=== PATIENT | female | born 1995 | race Caucasian/White ===

== ENCOUNTER 2018-11-30 10:19 | Observation (INO) | payer OTHER ==
[~2018-11-30] VITALS: Ht 149.9 cm; Wt 97.1 kg
[2018-11-30 11:01] VITALS: BP 125/66
== END 2018-11-30 18:00 | disposition home or self-care (01) ==
LOC: MLD 10:19
PROVIDERS: ADMIT Obstetrics & Gynecology; ATTEND Obstetrics & Gynecology
DX: O26.893 Other specified pregnancy related conditions, third trimester (principal); R10.9 Unspecified abdominal pain; Z3A.39 39 weeks gestation of pregnancy
CPT/HCPCS: 76815; 81000; G0378; Q0092

== ENCOUNTER 2018-12-05 14:05 | Inpatient (IN) | payer OTHER ==
[~2018-12-05] VITALS: Ht 149.9 cm; Wt 97.5 kg
[2018-12-05] MEDS ORDERED: METHYLERGONOVINE 0.2 MG/ML AMP IM PRN (14:35)
[2018-12-05] MEDS ORDERED: NALBUPHINE 10 MG/ML AMP IVP PRN (14:35)
[2018-12-05] MEDS ORDERED: LACTATED RINGERS 1,000 ML IV SCH (14:35)
[2018-12-05] MEDS ORDERED: CARBOPROST 250 MCG/ML AMP IM PRN (14:35)
[2018-12-05] MEDS ORDERED: OXYTOCIN 10 UNITS/ML VIAL IM SCH (14:35)
[2018-12-05] MEDS ORDERED: PROMETHAZINE 25 MG/ML VIAL IVP PRN (14:35)
[2018-12-05] MEDS ORDERED: PNV11TAB3 PO (14:54)
[2018-12-05] MEDS ORDERED: AMPICILLIN 2,000 MG in NACL 0.9% 100 ML IV SCH (15:39)
[2018-12-05 15:57] LABS: BASOPHILS % (AUTO) 0.2 % (0.0-2.0); EOSINOPHILS # (AUTO) 0.1 K/uL (0-0.4); EOSINOPHILS % (AUTO) 0.7 % (0.0-4.0); HEMATOCRIT 37.5 % (36-48); HEMOGLOBIN 12.9 g/dL (12.0-16.0); LYMPHOCYTES # (AUTO) 1.7 K/uL (2.5-16.5); LYMPHOCYTES % (AUTO) 12.4 % (20.5-51.1); MEAN CORPUSCULAR HEMOGLOBIN 32 pg (27-31); MEAN CORPUSCULAR HGB CONC 34 g/dL (33-37); MEAN CORPUSCULAR VOLUME 92.7 fL (80-94); MONOCYTES # (AUTO) 0.8 K/uL (0.8-1.0); MONOCYTES % (AUTO) 5.9 % (1.7-9.3); NEUTROPHILS # (AUTO) 10.8 K/uL (1.8-7.7); NEUTROPHILS % (AUTO) 80.8 % (42.2-75.2); PLATELET COUNT (AUTO) 224 K/uL (140-450); RED BLOOD CELL COUNT(AUTO) 4.05 MIL/uL (4.20-5.40); WHITE BLOOD COUNT (AUTO) 13.3 K/uL (4.8-10.8)
[2018-12-05 15:57] LABS: APPEARANCE,URINE HAZY (CLEAR); BILIRUBIN,URINE 1+ (NEGATIVE); BLOOD, URINE NEGATIVE (NEGATIVE); COLOR,URINE AMBER (YELLOW); LEUKOCYTE ESTERASE ,URINE TRACE (NEGATIVE); NITRITE, URINE NEGATIVE (NEGATIVE); PH,URINE 6.5 (5.0-9.0); UGLUCOSE TRACE (NEGATIVE)
[2018-12-05 16:05] LABS: RBC,URINE 0 /HPF (0-5); WBC,URINE 0-5 /HPF (0-5)
[2018-12-05] MEDS ORDERED: AMPICILLIN 2,000 MG VIAL ONE (16:20)
[2018-12-05] MEDS ORDERED: MISOPROSTOL 25 MCG TAB VG ONE (19:10)
[2018-12-05 19:45] VITALS: BP 126/58
[2018-12-05] MEDS ORDERED: MISOPROSTOL 25 MCG TAB ONE (19:56)
[2018-12-05] MEDS: AMPICILLIN 1,000 MG in NACL 0.9% 50 ML IV SCH (20:46)
[2018-12-05] MEDS ORDERED: AMPICILLIN 1,000 MG VIAL ONE (20:51)
[2018-12-06] MEDS ORDERED: AMPICILLIN 1,000 MG VIAL ONE ×6 (00:33→23:46)
[2018-12-06] MEDS ORDERED: SODIUM PHOSPHATE 118 ML ENEM RC PRN (03:00)
[2018-12-06] MEDS ORDERED: BLOOD GLUCOSE MONITORING 1 DEV DEV FS SCH (03:00)
[2018-12-06] MEDS ORDERED: OXYTOCIN 20 UNITS/LR PREMIX 1,000 ML IV ONE (03:52)
[2018-12-06] MEDS ORDERED: OXYTOCIN 20 UNITS in LACTATED RINGERS 1,000 ML IV SCH (04:00)
[2018-12-06] MEDS: AMPICILLIN 1,000 MG in NACL 0.9% 50 ML IV SCH ×4 (04:30→23:48)
[2018-12-06] MEDS ORDERED: metFORMIN 850 MG TAB PO SCH (08:20)
--- NOTE | 2018-12-06 14:25 | NUR ---
PATIENT HAS BEEN SCREENED AND CATEGORIZED LOW NUTRITION RISK. PATIENT WILL BE SEEN WITHIN 7 DAYS OF ADMISSION. 12/12/18 SAIMA BURT MBA, RD
[2018-12-06] MEDS ORDERED: MISOPROSTOL 25 MCG TAB ONE (18:12)
[2018-12-06] MEDS: metFORMIN 850 MG TAB PO SCH (19:33)
[2018-12-06] MEDS ORDERED: METF850T PO (20:12)
[2018-12-07] MEDS: AMPICILLIN 1,000 MG in NACL 0.9% 50 ML IV SCH ×3 (03:57→11:58)
[2018-12-07] MEDS ORDERED: AMPICILLIN 1,000 MG VIAL ONE ×3 (04:05→11:58)
[2018-12-07] MEDS: metFORMIN 850 MG TAB PO SCH (07:56)
== END 2018-12-07 14:55 | disposition home or self-care (01) | DRG 566 ==
LOC: MLD 14:05
PROVIDERS: ADMIT Obstetrics & Gynecology; ATTEND Obstetrics & Gynecology
PROC: 3E0P7VZ Introduction of Hormone into Female Reproductive, Via Natural or Artificial Opening (ICD-10-PCS; principal; 2018-12-05)
PROC: 3E033VJ Introduction of Other Hormone into Peripheral Vein, Percutaneous Approach (ICD-10-PCS; 2018-12-06)
DX: O24.419 Gestational diabetes mellitus in pregnancy, unspecified control (principal); E66.01 Morbid (severe) obesity due to excess calories; O61.0 Failed medical induction of labor; O99.213 Obesity complicating pregnancy, third trimester; Z3A.00 Weeks of gestation of pregnancy not specified
CPT/HCPCS: 36415; 59200; 76815; 81001; 82948; 85025; 86592; 86886; 86900; 86901; J0290; J2590; J7120; Q0092

== ENCOUNTER 2018-12-09 17:34 | Observation (INO) | payer OTHER ==
[~2018-12-09] VITALS: Ht 154.9 cm; Wt 70.8 kg
[~2018-12-09 17:34] MED LIST: METF850T PO; PNV11TAB3 PO
== END 2018-12-09 20:21 | disposition home or self-care (01) ==
LOC: MLD 17:34
PROVIDERS: ADMIT Obstetrics & Gynecology; ATTEND Obstetrics & Gynecology
DX: O24.119 Pre-existing type 2 diabetes mellitus, in pregnancy, unspecified trimester (principal); Z3A.38 38 weeks gestation of pregnancy
CPT/HCPCS: 59025; 81000; G0378

== ENCOUNTER 2018-12-11 18:17 | Inpatient (IN) | payer OTHER ==
[~2018-12-11] VITALS: Ht 149.9 cm; Wt 96.6 kg
[2018-12-11] MEDS ORDERED: MISOPROSTOL 25 MCG TAB ONE (19:13)
[2018-12-11] MEDS ORDERED: NACL 0.9% 1,000 ML IV SCH (19:22)
[2018-12-11] MEDS ORDERED: AMPICILLIN 2,000 MG in NACL 0.9% MINI-BAG PLUS 100 ML IV SCH (19:25)
[2018-12-11] MEDS ORDERED: OXYTOCIN 10 UNITS/ML VIAL IM SCH (19:25)
[2018-12-11] MEDS ORDERED: MISOPROSTOL 25 MCG TAB VG SCH (20:00)
[2018-12-11] MEDS: LACTATED RINGERS 1,000 ML IV SCH (20:16)
[2018-12-11] MEDS ORDERED: AMPICILLIN 2,000 MG VIAL ONE (20:35)
[2018-12-11 21:04] VITALS: BP 130/60
[2018-12-11 21:57] LABS: APPEARANCE,URINE CLEAR (CLEAR); BILIRUBIN,URINE NEGATIVE (NEGATIVE); BLOOD, URINE NEGATIVE (NEGATIVE); COLOR,URINE ORANGE (YELLOW); LEUKOCYTE ESTERASE ,URINE NEGATIVE (NEGATIVE); NITRITE, URINE NEGATIVE (NEGATIVE); PH,URINE 6.5 (5.0-9.0); UGLUCOSE NEGATIVE (NEGATIVE)
[2018-12-11 21:59] LABS: BASOPHILS % (AUTO) 0.3 % (0.0-2.0); EOSINOPHILS # (AUTO) 0.1 K/uL (0-0.4); HEMATOCRIT 36.2 % (36-48); HEMOGLOBIN 12.5 g/dL (12.0-16.0); LYMPHOCYTES # (AUTO) 2.2 K/uL (2.5-16.5); LYMPHOCYTES % (AUTO) 16.6 % (20.5-51.1); MEAN CORPUSCULAR HEMOGLOBIN 32 pg (27-31); MEAN CORPUSCULAR HGB CONC 35 g/dL (33-37); MEAN CORPUSCULAR VOLUME 92.7 fL (80-94); MONOCYTES # (AUTO) 0.6 K/uL (0.8-1.0); MONOCYTES % (AUTO) 4.4 % (1.7-9.3); NEUTROPHILS # (AUTO) 10.5 K/uL (1.8-7.7); NEUTROPHILS % (AUTO) 77.7 % (42.2-75.2); PLATELET COUNT (AUTO) 233 K/uL (140-450); WHITE BLOOD COUNT (AUTO) 13.5 K/uL (4.8-10.8)
[2018-12-11 22:08] LABS: ANION GAP 16.8 (8-16); CARBON DIOXIDE 20.8 mmol/L (21-32); CREATININE 0.5 mg/dL (0.6-1.3); POTASSIUM 3.6 mmol/L (3.5-5.1)
[2018-12-11 22:15] LABS: ALBUMIN 2.6 g/dL (3.4-5.0); TOTAL BILIRUBIN 0.4 mg/dL (0.0-1.0)
[2018-12-12] MEDS: AMPICILLIN 1,000 MG in NACL 0.9% MINI-BAG PLUS 50 ML IV SCH ×6 (00:21→20:35)
[2018-12-12] MEDS ORDERED: AMPICILLIN 1,000 MG VIAL ONE ×6 (00:29→20:41)
[2018-12-12] MEDS ORDERED: BLOOD GLUCOSE MONITORING 1 DEV DEV FS SCH (03:00)
[2018-12-12] MEDS ORDERED: OXYTOCIN 20 UNITS/LR PREMIX 1,000 ML IV ONE (03:23)
[2018-12-12] MEDS ORDERED: OXYTOCIN 20 UNITS in LACTATED RINGERS 1,000 ML IV SCH (03:30)
--- NOTE | 2018-12-12 08:21 | NUR ---
PATIENT HAS BEEN SCREENED AND CATEGORIZED LOW NUTRITION RISK. PATIENT WILL BE SEEN WITHIN 7 DAYS OF ADMISSION. 12/18/[address]
[2018-12-12] MEDS: metFORMIN 850 MG TAB PO SCH ×2 (08:52→16:48)
[2018-12-12] MEDS ORDERED: MISOPROSTOL 25 MCG TAB ONE (20:24)
[2018-12-13] MEDS ORDERED: AMPICILLIN 1,000 MG VIAL ONE ×3 (00:46→10:46)
[2018-12-13] MEDS: metFORMIN 850 MG TAB PO SCH (09:15)
[2018-12-13] MEDS: AMPICILLIN 1,000 MG in NACL 0.9% MINI-BAG PLUS 50 ML IV SCH (10:36)
[2018-12-13] MEDS: LACTATED RINGERS 1,000 ML IV SCH (10:38)
[2018-12-13] MEDS ORDERED: ceFAZolin 1,000 MG VIAL ONE (13:13)
[2018-12-13] MEDS ORDERED: ONDANSETRON 4 MG/2 ML VIAL IVP ONE (13:35)
[2018-12-13] MEDS ORDERED: MIDAZOLAM 2 MG/2 ML VIAL ONE (13:55)
[2018-12-13] MEDS ORDERED: MORPHINE PRES FREE 10 MG/10 ML AMP IV ONE (13:55)
[2018-12-13] MEDS ORDERED: HYDROmorphone 1 MG/ML AMP IVP PRN ×2 (14:05→16:05)
[2018-12-13] MEDS ORDERED: NALOXONE 0.4 MG/ML VIAL IVP PRN ×3 (14:05)
[2018-12-13] MEDS ORDERED: OXYTOCIN 20 UNITS in LACTATED RINGERS 1,000 ML IV SCH ×2 (14:05→16:02)
[2018-12-13] MEDS ORDERED: NALBUPHINE 10 MG/ML AMP IVP PRN (14:05)
[2018-12-13] MEDS ORDERED: ONDANSETRON 4 MG/2 ML VIAL IVP PRN ×2 (14:05)
[2018-12-13] MEDS ORDERED: MEPERIDINE 25 MG/ML SYR IVP PRN (14:05)
[2018-12-13] MEDS ORDERED: diphenhydrAMINE 50 MG/ML VIAL IVP PRN ×2 (14:05)
[2018-12-13] MEDS ORDERED: ceFAZolin 1,000 MG VIAL IVP ONE (15:50)
[2018-12-13] MEDS ORDERED: KETOROLAC 30 MG/ML VIAL IVP PRN (16:05)
[2018-12-13] MEDS ORDERED: MEASLES, MUMPS, AND RUBELLA 1 VIAL SQVAC PRN (16:05)
[2018-12-13] MEDS ORDERED: OXYTOCIN 20 UNITS/LR PREMIX 1,000 ML IV ONE (16:32)
[2018-12-13] MEDS ORDERED: SIMETHICONE 80 MG TAB.CHEW PO SCH ×2 (17:00)
[2018-12-13] MEDS: KETOROLAC 30 MG/ML VIAL IM/IVP SCH (18:55)
[2018-12-14] MEDS: KETOROLAC 30 MG/ML VIAL IM/IVP SCH ×3 (00:04→11:42)
[2018-12-14] MEDS ORDERED: OXYTOCIN 20 UNITS/LR PREMIX 1,000 ML IV ONE (03:04)
[2018-12-14 06:06] LABS: BASOPHILS # (AUTO) 0.1 K/uL (0.00-0.22); BASOPHILS % (AUTO) 0.4 % (0.0-2.0); EOSINOPHILS # (AUTO) 0.1 K/uL (0-0.4); EOSINOPHILS % (AUTO) 0.7 % (0.0-4.0); HEMATOCRIT 29.2 % (36-48); HEMOGLOBIN 10.1 g/dL (12.0-16.0); LYMPHOCYTES # (AUTO) 2.2 K/uL (2.5-16.5); LYMPHOCYTES % (AUTO) 18.7 % (20.5-51.1); MEAN CORPUSCULAR HEMOGLOBIN 32 pg (27-31); MEAN CORPUSCULAR HGB CONC 35 g/dL (33-37); MEAN CORPUSCULAR VOLUME 93.3 fL (80-94); MONOCYTES # (AUTO) 0.8 K/uL (0.8-1.0); MONOCYTES % (AUTO) 6.6 % (1.7-9.3); NEUTROPHILS # (AUTO) 8.8 K/uL (1.8-7.7); NEUTROPHILS % (AUTO) 73.6 % (42.2-75.2); PLATELET COUNT (AUTO) 195 K/uL (140-450); RED BLOOD CELL COUNT(AUTO) 3.13 MIL/uL (4.20-5.40); RED CELL DISTRIBUTION WIDTH 13.8 % (11.6-13.7)
[2018-12-14] MEDS ORDERED: BISACODYL 5 MG TABEC PO SCH (09:00)
[2018-12-14] MEDS ORDERED: DOCUSATE SODIUM 100 MG GELCAP PO SCH ×2 (09:00)
[2018-12-14] MEDS: BISACODYL 5 MG TABEC PO SCH (09:00)
[2018-12-14] MEDS ORDERED: KETOROLAC 30 MG/ML VIAL IVP PRN (20:25)
[2018-12-14] MEDS ORDERED: ACETAMINOPHEN 325 MG TAB PO PRN (22:00)
[2018-12-15] MEDS ORDERED: BISACODYL 5 MG TABEC PO SCH (09:00)
[2018-12-15] MEDS ORDERED: SODIUM PHOSPHATE 118 ML ENEM RC PRN ×2 (09:00)
[2018-12-15] MEDS: BISACODYL 5 MG TABEC PO SCH (09:04)
[2018-12-15] MEDS: DOCUSATE SODIUM 100 MG GELCAP PO SCH (09:04)
[2018-12-15] MEDS: SIMETHICONE 80 MG TAB.CHEW PO SCH ×2 (09:04→17:00)
[2018-12-15] MEDS: IBUPROFEN 600 MG TAB PO PRN ×3 (09:04→23:52)
[2018-12-16] MEDS: metFORMIN 850 MG TAB PO SCH (08:00)
[2018-12-16] MEDS: BISACODYL 5 MG TABEC PO SCH (08:37)
[2018-12-16] MEDS: SIMETHICONE 80 MG TAB.CHEW PO SCH ×3 (08:38→18:12)
[2018-12-16] MEDS: DOCUSATE SODIUM 100 MG GELCAP PO SCH (08:38)
[2018-12-16] MEDS: IBUPROFEN 600 MG TAB PO PRN ×2 (08:38→18:18)
[2018-12-17] MEDS: IBUPROFEN 600 MG TAB PO PRN ×2 (02:50→13:28)
[2018-12-17] MEDS ORDERED: FERR325E14 PO (09:00)
[2018-12-17] MEDS ORDERED: IBUP-1842 PO (09:01)
[2018-12-17] MEDS: SIMETHICONE 80 MG TAB.CHEW PO SCH ×2 (09:42→13:26)
[2018-12-17] MEDS: DOCUSATE SODIUM 100 MG GELCAP PO SCH (09:42)
[2018-12-17] MEDS: BISACODYL 5 MG TABEC PO SCH (09:42)
[2018-12-17] MEDS ORDERED: DOCU50CA7 PO (13:52)
== END 2018-12-17 17:35 | disposition home or self-care (01) | DRG 540 ==
LOC: MLD 18:17 → MFCC 12-13 18:46
PROVIDERS: ADMIT Obstetrics & Gynecology; ATTEND Obstetrics & Gynecology
PROC: 10D00Z1 Extraction of Products of Conception, Low, Open Approach (ICD-10-PCS; principal; 2018-12-13 13:30)
PROC: 3E0234Z Introduction of Serum, Toxoid and Vaccine into Muscle, Percutaneous Approach (ICD-10-PCS; 2018-12-16)
DX: O48.0 Post-term pregnancy (principal); E66.01 Morbid (severe) obesity due to excess calories; O24.429 Gestational diabetes mellitus in childbirth, unspecified control; O99.214 Obesity complicating childbirth; R71.0 Precipitous drop in hematocrit; O69.81X0 Labor and delivery complicated by cord around neck, without compression, not applicable or unspecified; O62.1 Secondary uterine inertia; Z37.0 Single live birth; Z3A.40 40 weeks gestation of pregnancy; Z23 Encounter for immunization
CPT/HCPCS: 36415; 59200; 76805; 76815; 80053; 81003; 82947; 82948; 85025; 86592; 86886; 86900; 86901; 87081; 87086; 90715; J0290; J0690; J1885; J2250; J2270; J2405; J2590; J7060; J7120; Q0092

== ENCOUNTER 2020-07-30 07:32 | Inpatient (IN) | payer OTHER, SELFPAY ==
[~2020-07-30] VITALS: Ht 149.9 cm; Wt 97.5 kg
[~2020-07-30 07:32] MED LIST changes: +DOCU50CA7 PO; +FERR325E14 PO; +IBUP-1842 PO; -METF850T PO
[2020-07-30] MEDS ORDERED: LACTATED RINGERS 1,000 ML IV SCH (07:45)
[2020-07-30 08:14] LABS: BASOPHILS # (AUTO) 0.1 K/uL (0.00-0.22); BASOPHILS % (AUTO) 0.4 % (0.0-2.0); EOSINOPHILS # (AUTO) 0.1 K/uL (0-0.4); EOSINOPHILS % (AUTO) 1.1 % (0.0-4.0); HEMATOCRIT 37.1 % (36-48); HEMOGLOBIN 12.7 g/dL (12.0-16.0); LYMPHOCYTES # (AUTO) 2.6 K/uL (2.5-16.5); MEAN CORPUSCULAR HEMOGLOBIN 32 pg (27-31); MEAN CORPUSCULAR HGB CONC 34 g/dL (33-37); MEAN CORPUSCULAR VOLUME 91.8 fL (80-94); MONOCYTES # (AUTO) 0.6 K/uL (0.8-1.0); MONOCYTES % (AUTO) 4.2 % (1.7-9.3); NEUTROPHILS # (AUTO) 9.7 K/uL (1.8-7.7); NEUTROPHILS % (AUTO) 74.3 % (42.2-75.2); PLATELET COUNT (AUTO) 188 K/uL (140-450); RED BLOOD CELL COUNT(AUTO) 4.05 MIL/uL (4.20-5.40); RED CELL DISTRIBUTION WIDTH 14.9 % (11.6-13.7); WHITE BLOOD COUNT (AUTO) 13.1 K/uL (4.8-10.8)
[2020-07-30 08:15] LABS: BILIRUBIN,URINE NEGATIVE (NEGATIVE); BLOOD, URINE NEGATIVE (NEGATIVE); COLOR,URINE YELLOW (YELLOW); LEUKOCYTE ESTERASE ,URINE 1+ (NEGATIVE); NITRITE, URINE NEGATIVE (NEGATIVE); UGLUCOSE NEGATIVE (NEGATIVE)
[2020-07-30 08:20] LABS: APPEARANCE,URINE SLIGHTLY HAZY (CLEAR)
[2020-07-30 08:22] LABS: RBC,URINE 0-5 /HPF (0-5); WBC,URINE 0-5 /HPF (0-5)
[2020-07-30 08:24] LABS: BARBITURATE, URINE NEGATIVE ng/ml (NEG <=200); BENZODIAZEPINE, URINE NEGATIVE ng/mL (NEG <=200); CANNABINOID, URINE NEGATIVE ng/mL (NEG <=50); COCAINE, URINE NEGATIVE ng/mL (NEG <=300); OPIATE, URINE NEGATIVE ng/mL (NEG <=2000); PHENCYCLIDINE SCREEN,URINE NEGATIVE ng/mL (NEG <=25)
[2020-07-30 08:29] VITALS: BP 120/61
[2020-07-30 08:41] LABS: ALBUMIN 2.6 g/dL (3.4-5.0); ANION GAP 12.7 (8-16); CARBON DIOXIDE 23.1 mmol/L (21-32); CREATININE 0.5 mg/dL (0.6-1.3); POTASSIUM 3.8 mmol/L (3.5-5.1); TOTAL BILIRUBIN 0.3 mg/dL (0.0-1.0)
[2020-07-30] MEDS ORDERED: MIDAZOLAM 2 MG/2 ML VIAL ONE (12:05)
[2020-07-30] MEDS ORDERED: MORPHINE PRES FREE 10 MG/10 ML AMP IV ONE (12:06)
[2020-07-30] MEDS ORDERED: NALBUPHINE 10 MG/ML AMP IVP PRN (12:50)
[2020-07-30] MEDS ORDERED: MEPERIDINE 25 MG/ML SYR IVP PRN (12:50)
[2020-07-30] MEDS ORDERED: ONDANSETRON 4 MG/2 ML VIAL IVP PRN ×2 (12:50)
[2020-07-30] MEDS ORDERED: diphenhydrAMINE 50 MG/ML VIAL IVP PRN ×2 (12:50)
[2020-07-30] MEDS ORDERED: OXYTOCIN 20 UNITS in LACTATED RINGERS 1,000 ML IV SCH ×2 (12:50→15:55)
[2020-07-30] MEDS ORDERED: HYDROmorphone 1 MG/ML AMP IVP PRN ×2 (12:50→15:55)
[2020-07-30] MEDS ORDERED: NALOXONE 0.4 MG/ML VIAL IVP PRN ×3 (12:50)
[2020-07-30] MEDS ORDERED: BLOOD GLUCOSE MONITORING 1 DEV DEV FS SCH (12:50)
[2020-07-30] MEDS ORDERED: OXYTOCIN 20 UNITS/LR PREMIX 1,000 ML IV ONE ×2 (15:21→21:33)
[2020-07-30] MEDS ORDERED: KETOROLAC 30 MG/ML VIAL IVP PRN ×2 (15:55→16:25)
[2020-07-30] MEDS ORDERED: MEASLES, MUMPS, AND RUBELLA 1 VIAL SQVAC PRN (15:55)
[2020-07-30] MEDS: KETOROLAC 30 MG/ML VIAL IM/IVP SCH (18:37)
[2020-07-30] MEDS ORDERED: ceFAZolin 1,000 MG VIAL ONE (20:34)
[2020-07-31] MEDS: KETOROLAC 30 MG/ML VIAL IM/IVP SCH ×3 (00:37→12:27)
[2020-07-31] MEDS ORDERED: ceFAZolin 1,000 MG VIAL ONE (04:24)
--- NOTE | 2020-07-31 08:16 | NUR ---
PATIENT HAS BEEN SCREENED AND CATEGORIZED LOW NUTRITION RISK. PATIENT WILL BE SEEN WITHIN 7 DAYS OF ADMISSION. 08/06/20 SAIMA BURT MBA, RD
[2020-07-31 08:42] LABS: BASOPHILS % (AUTO) 0.2 % (0.0-2.0); EOSINOPHILS # (AUTO) 0.2 K/uL (0-0.4); EOSINOPHILS % (AUTO) 1.4 % (0.0-4.0); HEMATOCRIT 31.4 % (36-48); HEMOGLOBIN 10.9 g/dL (12.0-16.0); LYMPHOCYTES # (AUTO) 1.8 K/uL (2.5-16.5); LYMPHOCYTES % (AUTO) 16.7 % (20.5-51.1); MEAN CORPUSCULAR HEMOGLOBIN 32 pg (27-31); MEAN CORPUSCULAR HGB CONC 35 g/dL (33-37); MEAN CORPUSCULAR VOLUME 93.3 fL (80-94); MONOCYTES # (AUTO) 0.6 K/uL (0.8-1.0); MONOCYTES % (AUTO) 5.4 % (1.7-9.3); NEUTROPHILS # (AUTO) 8.3 K/uL (1.8-7.7); NEUTROPHILS % (AUTO) 76.3 % (42.2-75.2); PLATELET COUNT (AUTO) 170 K/uL (140-450); RED BLOOD CELL COUNT(AUTO) 3.37 MIL/uL (4.20-5.40); WHITE BLOOD COUNT (AUTO) 10.8 K/uL (4.8-10.8)
[2020-07-31] MEDS: ACETAMINOPHEN 325 MG TAB PO PRN (22:19)
[2020-08-01] MEDS: ACETAMINOPHEN 325 MG TAB PO PRN ×3 (05:12→21:11)
[2020-08-01] MEDS ORDERED: MEASLES, MUMPS, AND RUBELLA 1 VIAL SQVAC PRN (07:50)
[2020-08-01] MEDS: bisacodyL 5 MG TABEC PO SCH (08:24)
[2020-08-01] MEDS: SIMETHICONE 80 MG TAB.CHEW PO SCH ×3 (08:25→17:36)
[2020-08-01] MEDS: DOCUSATE SODIUM 100 MG GELCAP PO SCH (08:25)
[2020-08-01] MEDS ORDERED: SODIUM PHOSPHATE 118 ML ENEM RC PRN (09:00)
[2020-08-02] MEDS: IBUPROFEN 600 MG TAB PO PRN ×2 (06:49→17:10)
[2020-08-02] MEDS: SIMETHICONE 80 MG TAB.CHEW PO SCH ×3 (09:36→17:09)
[2020-08-02] MEDS: bisacodyL 5 MG TABEC PO SCH (09:37)
[2020-08-02] MEDS: DOCUSATE SODIUM 100 MG GELCAP PO SCH (09:37)
== END 2020-08-02 20:40 | disposition home or self-care (01) | DRG 540 ==
LOC: MLD 07:32 → MFCC 16:45
PROVIDERS: ADMIT Obstetrics & Gynecology; ATTEND Obstetrics & Gynecology
PROC: 3E0134Z Introduction of Serum, Toxoid and Vaccine into Subcutaneous Tissue, Percutaneous Approach (ICD-10-PCS; 2020-07-30)
PROC: 3E0234Z Introduction of Serum, Toxoid and Vaccine into Muscle, Percutaneous Approach (ICD-10-PCS; 2020-07-30)
PROC: 10D00Z1 Extraction of Products of Conception, Low, Open Approach (ICD-10-PCS; principal; 2020-07-30 12:00)
DX: O24.429 Gestational diabetes mellitus in childbirth, unspecified control (principal); E66.9 Obesity, unspecified; O34.211 Maternal care for low transverse scar from previous cesarean delivery; O99.214 Obesity complicating childbirth; Z20.822 Contact with and (suspected) exposure to COVID-19; Z37.0 Single live birth; Z23 Encounter for immunization; Z3A.40 40 weeks gestation of pregnancy
CPT/HCPCS: 36415; 51702; 80053; 80305; 81001; 82948; 85025; 86592; 86886; 86900; 86901; 87086; J0690; J1885; J2250; J2270; J2590; J7060; J7120